=== PATIENT | female | born 1935 | race Caucasian/White ===

== ENCOUNTER → 2016-06-19 | Outpatient (CLI) | payer OTHER | LOC: BMCIMAGING 09:54 | PROVIDERS: ATTEND Internal Medicine Endocrinology, Diabetes & Metabolism | DX: Z13.820 Encounter for screening for osteoporosis (principal); M85.80 Other specified disorders of bone density and structure, unspecified site ==

== ENCOUNTER → 2016-06-21 | Outpatient (CLI) | payer OTHER | LOC: FIMAGING 10:45 | PROVIDERS: ATTEND Internal Medicine Endocrinology, Diabetes & Metabolism | DX: E21.3 Hyperparathyroidism, unspecified (principal); D35.1 Benign neoplasm of parathyroid gland | CPT/HCPCS: 78070; A9500 ==

== ENCOUNTER → 2016-09-23 | Outpatient (CLI) | payer OTHER | LOC: FIMAGING 12:54 | PROVIDERS: ATTEND Internal Medicine | DX: Z12.31 Encounter for screening mammogram for malignant neoplasm of breast (principal) | CPT/HCPCS: G0202 ==

== ENCOUNTER 2017-01-21 07:04 | Emergency (ER) | payer OTHER ==
[2017-01-21 07:12] VITALS: PULSE 82; RESP 16; TEMP 97.5; O2SAT 96
--- NOTE | 2017-01-21 07:12 | EDPHY ---
H & P Time Seen by Provider: 01/21/17 07:05 HPI/ROS: CHIEF COMPLAINT: Elevated blood pressure HISTORY OF PRESENT ILLNESS: The patient presents to the ED with elevated blood pressure. She has a history of hypertension. The patient has been on losartan. She denies and associated symptoms of chest pain, shortness of breath , headache, numbness, weakness or other concerns. Her systolic BPs have been in the 160-170. The patient has no acute complaints. She currently is taking 25 mg of losartan night. REVIEW OF SYSTEMS: A comprehensive 10 point review of systems is otherwise negative aside from elements mentioned in the history of present illness. Source: Patient - Personal History Tetanus Vaccine Date: "current" as of 2013 - Medical/Surgical History Hx Asthma: No Hx Chronic Respiratory Disease: No Hx Diabetes: No Hx Cardiac Disease: No Hx Renal Disease: No Hx Cirrhosis: No Hx Alcoholism: No Hx HIV/AIDS: No Hx Splenectomy or Spleen Trauma: No Other PMH: R rib removed 1970, hypothyroid. just started losartan has had 3 doses - Social History Smoking Status: Never smoked - Physical Exam Exam: General Appearance: Alert, no distress Eyes: Pupils equal and round no pallor or injection ENT, Mouth: Mucous membranes moist Respiratory: There are no retractions, lungs are clear to auscultation Cardiovascular: Regular rate and rhythm Gastrointestinal: Abdomen is soft and nontender, no masses, bowel sounds normal Neurological: A&O, normal motor function, normal sensory exam, normal cranial nerves Skin: Warm and dry, no rashes Musculoskeletal: Neck is supple nontender Extremities: symmetrical, full range of motion Psychiatric: Patient is oriented X 3, there is no agitation Constitutional: Initial Vital Signs Temperature (C) 36.4 C 01/21/17 07:09 Heart Rate 82 01/21/17 07:09 Respiratory Rate 16 01/21/17 07:09 Blood Pressure 165/100 H 01/21/17 07:09 O2 Sat (%) 96 01/21/17 07:09 O2 Delivery Mode Room Air Allergies/Adverse Reactions: No Known Allergies Allergy (Verified 01/21/17 07:05) Home Medications: Medication Instructions Recorded Levothyroxine [Synthroid 50 mcg 50 mcg PO DAILY06 01/27/13 (*)] Cholecalciferol Vit D3 [Vitamin D3 1,000 units PO DAILY 10/28/13 (*)] Ibuprofen [Motrin (*)] 800 mg PO Q4-8PRN PRN #60 tab 10/29/13 Losartan Potassium 11/12/15 Sertraline HCl 01/21/17 Medical Decision Making ED Course/Re-evaluation: The patient presents to the ED with mild hypertension. She has no evidence of a hypertensive emergency or urgency. She is currently on losartan. She is scheduled to see Dr. Onofre on Sunday of this week. I reviewed the patient's outpatient blood pressure readings. She certainly could increase her losartan to 50 mg daily given her blood pressure log. I have advised the patient to begin taking 50 mg of losartan night. Departure - Departure Disposition: Home, Routine, Self-Care Clinical Impression: Hypertension Condition: Good Instructions: Chronic Hypertension (ED) Additional Instructions: 1. Please follow up with Dr. Delacruz on Sunday as scheduled to review your antihypertensive medications. 2. Return to the ED for any chest pain, shortness of breath, difficulty breathing or other concerns 3. You can increase your losartan to 50 mg total at night. Referrals: Hannah Delacruz MD [Primary Care Provider] - As per Instructions
[2017-01-21 07:28] VITALS: BP 162/92
== END 2017-01-21 07:50 | disposition home or self-care (01) ==
DX: I10 Essential (primary) hypertension (principal)

== ENCOUNTER → 2017-10-01 | Outpatient (CLI) | payer OTHER | LOC: FIMAGING 12:11 | PROVIDERS: ATTEND Internal Medicine | DX: Z12.31 Encounter for screening mammogram for malignant neoplasm of breast (principal) ==